=== PATIENT | male | born 1980 | race Caucasian/White ===

== ENCOUNTER 2016-12-22 18:29 | Emergency (ER) | payer OTHER ==
[2016-12-22 18:54] LABS: Hematocrit 40.5 % (42.0-52.0); Hemoglobin 13.6 gm/dL (13.5-18.0); Mean Cell Volume 88.4 fl (78-100); Mean Corpuscular Hemoglobin 29.7 pg (27-31); Mean Corpuscular Hgb Conc 33.6 g/dl (32-36); Mean Platelet Volume 8.7 fl (6.0-9.5); Neutrophil # 5.4 K/mm3 (1.3-6.0); Neutrophil % 81.2 % (42-75.0); Platelet Count 233 K/mm3 (150-450); Red Blood Count 4.58 M/mm3 (4.7-6.0); Red Cell Distribution Width 11.9 % (11.5-14.0); White Blood Count 6.7 K/mm3 (4.0-10.5)
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
[2016-12-22 19:03] LABS: Albumin * 3.7 gm/dl (3.4-5.0); BUN/Creatinine Ratio 10.5 (9.0-21.6); Bilirubin, Total 0.6 mg/dL (0.0-1.1); CRP 2.8 mg/dL (0.0-0.9); Ca. Corrected For Albumin 8.7 mg/dL (8.4-10.2); Calcium * 8.8 mg/dL (7.9-10.9); Total Protein 7.4 gm/dL (6.2-8.2)
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
[2016-12-22] MEDS ORDERED: DIPHTH,PERTUSS(ACELL),TET VAC 0.5 ML VIAL IM ONE ×2 (19:45)
[2016-12-22] MEDS ORDERED: AMPICILLIN SODIUM/SULBACTAM NA 3 GM in NORMAL SALINE 100 ML IV SCH (19:45)
[2016-12-22 20:18] VITALS: BP 120/71
== END 2016-12-22 20:04 | disposition short-term general hospital (02) ==
LOC: ER 18:29
DX: M72.6 Necrotizing fasciitis (principal); S60.424A Blister (nonthermal) of right ring finger, initial encounter; Z23 Encounter for immunization; F17.200 Nicotine dependence, unspecified, uncomplicated; V19.9XXA Pedal cyclist (driver) (passenger) injured in unspecified traffic accident, initial encounter